=== PATIENT | female | born 1960 | race African-American/Black ===

== ENCOUNTER 2022-10-15 13:16 | Inpatient (IN) | payer BC, SELFPAY ==
[2022-10-15] MEDS ORDERED: Cyclobenzaprine 10 MG TAB ONE (13:37)
[2022-10-15 13:53] LABS: Actual Bicarbonate (HCO3v) 23 mEq/L (22-28); Calcium, Ionized (venous) 1.19 mmol/L (1.16-1.32); Chloride (VBG) 98 mmol/L (98-106); Hemoglobin (Hb) 10.5 g/dL (11.7-16.0); Potassium (VBG) 3.35 mmol/L (3.70-5.30); Sodium 131.9 mmol/L (133-146)
[2022-10-15 13:59] LABS: #Basophils 0.1 thou/uL (0.0-0.2); #Eosinphils 0.2 thou/uL (0.0-0.7); #Lymphocytes 2.9 thou/uL (1.20-3.40); #Monocytes 0.5 thou/uL (0.11-0.59); #Neutrophils 4.8 thou/uL (1.40-6.50); %Basophils 1.1 % (0.0-1.0); %Eosinophils 2.3 % (0.0-10.0); %Lymphocytes 33.6 % (21.0-51.0); %Monocytes 6.4 % (0.0-10.0); %Neutrophils 56.5 % (42.0-75.0); Hemoglobin 9.3 g/dL (12.0-16.0); Mean Corpuscular HGB CONC 30.9 g/dL (32.0-36.0); Mean Corpuscular Hemoglobin 26.4 pg (27.0-31.0); Mean Corpuscular Volume 85.4 fl (78.0-98.0); Mean Platelet Volume 8.9 fL (7.4-10.4); Platelet Count 94 10x3/uL (130-400); RBC Distribution Width 15.6 % (11.5-14.5); Red Blood Cell (RBC) Count 3.54 mill/uL (4.20-5.40); White Blood Cell (WBC) Count 8.6 10x3/uL (4.8-10.8)
[2022-10-15 14:13] LABS: ALT (SGPT) 15 U/L (8-55); AST (SGOT) 23 U/L (5-34); Albumin 3.4 g/dL (3.4-4.8); Alkaline Phosphatase 407 U/L (40-110); Anion Gap 14 mmol/L (10-20); BUN (Urea Nitrogen) 29 mg/dL (9.8-20.1); Bilirubin, Total 2.2 mg/dL (0.2-1.2); Calc. Creatinine Clearance 0 mL/min (70-130); Calcium 9.5 mg/dL (7.8-10.44); Carbon Dioxide 22 mmol/L (23-31); Chloride 96 mmol/L (98-107); Estimated GFR 21; Globulin 5.1 g/dL (2.4-3.5); Glucose 391 mg/dL (80-115); Magnesium 1.4 mg/dL (1.6-2.6); Potassium 3.2 mmol/L (3.5-5.1); Protein, Total 8.5 g/dL (5.8-8.1); Sodium 129 mmol/L (136-145)
[2022-10-15 14:19] LABS: Phosphorus 2.9 mg/dL (2.3-4.7)
[2022-10-15] MEDS ORDERED: Potassium Chloride 20 MEQ TAB ONE (15:06)
[2022-10-15] MEDS ORDERED: Magnesium 2 GM/50 ML BAG (IN WATER) ONE (15:06)
[2022-10-15 15:30] LABS: Bacteria/HPF 3+ HPF (None Seen); Bilirubin Negative (Negative); Blood, Urine Negative (Negative); Clarity Clear (Clear); Glucose, Urine (Dipstick) Greater than 1000 mg/dL (Negative); Ketone, Urine Negative (Negative); Leukocyte 75 Leu/uL (Negative); Nitrite Negative (Negative); Protein, Urine (Dipstick) Negative (Neg-Trace); RBC/HPF 0-3 HPF (0-3); Specific Gravity, Urine 1.007 (1.002-1.036); Squamous Epithelial 0-3 HPF (0-3); Urobilinogen Normal mg/dL (Less than 2); WBC/HPF 0-3 HPF (0-3)
[2022-10-15] MEDS ORDERED: Dextrose 50% Abboject 50 ML SYRINGE SLOW IVP PRN (15:32)
[2022-10-15] MEDS ORDERED: Dextrose 5% in Water 1,000 ML IV PRN (15:32)
[2022-10-15] MEDS ORDERED: hydrALAZINE 20 MG/ML VIAL SLOW IVP PRN (15:33)
[2022-10-15] MEDS ORDERED: hydrOXYzine 10 MG TAB PO PRN (16:18)
[2022-10-15] MEDS ORDERED: Baclofen 10 MG TAB PO PRN (16:18)
[2022-10-15] MEDS ORDERED: Diclofenac 1% 100 GM GEL TP PRN (16:18)
[2022-10-15] MEDS: Lactated Ringer's 1,000 ML IV SCH (16:36)
[2022-10-15] MEDS: HumaLOG 300 UNITS/3 ML VIAL SC PRN ×2 (16:40→20:04)
[2022-10-15 16:43] LABS: Hemoglobin A1c 10.3 % (4.0-6.0)
[2022-10-15 16:48] LABS: Cardiac Risk 5.5 (Less than 4.5)
[2022-10-15 17:13] VITALS: BMI 28.5
[2022-10-15] MEDS: metFORMIN 500 MG TAB PO SCH (17:42)
[2022-10-15] MEDS: Thiamine 100 MG TAB PO SCH (20:01)
[2022-10-15] MEDS: Heparin 5,000 UNITS/ML VIAL SC SCH (20:01)
[2022-10-15] MEDS: NIFEdipine XL 30 MG TAB PO SCH (20:01)
[2022-10-15] MEDS: Artificial Tear Sol 15 ML BOT EA EYE SCH (20:03)
[2022-10-15] MEDS ORDERED: Insulin Glargine 30 UNITS/0.3 ML VIAL SC SCH (21:00)
[2022-10-16] MEDS: Lactated Ringer's 1,000 ML IV SCH (00:28)
[2022-10-16] MEDS: HumaLOG 300 UNITS/3 ML VIAL SC PRN ×4 (06:12→20:36)
[2022-10-16 07:20] LABS: Anion Gap 13 mmol/L (10-20); BUN (Urea Nitrogen) 26 mg/dL (9.8-20.1); Calc. Creatinine Clearance 36 mL/min (70-130); Carbon Dioxide 20 mmol/L (23-31); Chloride 104 mmol/L (98-107); Estimated GFR 27; Glucose 323 mg/dL (80-115); Sodium 133 mmol/L (136-145)
[2022-10-16] MEDS ORDERED: Insulin Glargine 30 UNITS/0.3 ML VIAL SC SCH ×4 (07:45→17:45)
[2022-10-16] MEDS: Propranolol 10 MG TAB PO SCH (08:44)
[2022-10-16] MEDS: metFORMIN 500 MG TAB PO SCH ×2 (08:44→16:38)
[2022-10-16] MEDS: Furosemide 40 MG TAB PO SCH (08:44)
[2022-10-16] MEDS: Gabapentin 100 MG CAP PO SCH (08:44)
[2022-10-16] MEDS: Cyanocobalamin (Vitamin B-12) 1,000 MCG TAB PO SCH (08:44)
[2022-10-16] MEDS: Thiamine 100 MG TAB PO SCH ×2 (08:44→20:34)
[2022-10-16] MEDS: Heparin 5,000 UNITS/ML VIAL SC SCH ×3 (08:45→20:34)
[2022-10-16] MEDS: Artificial Tear Sol 15 ML BOT EA EYE SCH ×2 (08:46→20:34)
[2022-10-16] MEDS: NIFEdipine XL 30 MG TAB PO SCH (20:33)
[2022-10-16] MEDS: Atorvastatin Calcium 40 MG TAB PO SCH (20:34)
[2022-10-17] MEDS: HumaLOG 300 UNITS/3 ML VIAL SC PRN ×3 (05:55→17:13)
[2022-10-17 08:15] LABS: Anion Gap 10 mmol/L (10-20); BUN (Urea Nitrogen) 25 mg/dL (9.8-20.1); Calc. Creatinine Clearance 34 mL/min (70-130); Calcium 9.1 mg/dL (7.8-10.44); Carbon Dioxide 23 mmol/L (23-31); Chloride 106 mmol/L (98-107); Estimated GFR 25; Glucose 300 mg/dL (80-115); Potassium 3.9 mmol/L (3.5-5.1); Sodium 135 mmol/L (136-145)
[2022-10-17] MEDS ORDERED: Insulin Glargine 30 UNITS/0.3 ML VIAL SC SCH ×2 (09:00→10:45)
[2022-10-17] MEDS: Gabapentin 100 MG CAP PO SCH (09:30)
[2022-10-17] MEDS: Cyanocobalamin (Vitamin B-12) 1,000 MCG TAB PO SCH (09:30)
[2022-10-17] MEDS: Thiamine 100 MG TAB PO SCH ×2 (09:30→20:24)
[2022-10-17] MEDS: Artificial Tear Sol 15 ML BOT EA EYE SCH ×2 (09:31→19:14)
[2022-10-17] MEDS: Propranolol 10 MG TAB PO SCH (09:31)
[2022-10-17] MEDS: Furosemide 40 MG TAB PO SCH (09:31)
[2022-10-17] MEDS: Heparin 5,000 UNITS/ML VIAL SC SCH ×3 (09:31→20:25)
[2022-10-17] MEDS: metFORMIN 500 MG TAB PO SCH ×2 (09:31→17:13)
[2022-10-17 11:04] LABS: Bacteria/HPF 3+ HPF (None Seen); Bilirubin Negative (Negative); Blood, Urine Negative (Negative); CAUTI Indications for Culture Dysuria,urgency,freq; Clarity Clear (Clear); Glucose, Urine (Dipstick) 150 mg/dL (Negative); Ketone, Urine Negative (Negative); Leukocyte 250 Leu/uL (Negative); Nitrite Negative (Negative); Protein, Urine (Dipstick) Negative (Neg-Trace); RBC/HPF 0-3 HPF (0-3); Specific Gravity, Urine 1.013 (1.002-1.036); Urobilinogen Normal mg/dL (Less than 2)
[2022-10-17 11:05] LABS: Urine Culture Reflex No No
[2022-10-17] MEDS: Cephalexin 250 MG CAP PO SCH ×3 (12:08→23:22)
[2022-10-17] MEDS: Atorvastatin Calcium 40 MG TAB PO SCH (20:24)
[2022-10-17] MEDS: NIFEdipine XL 30 MG TAB PO SCH (20:25)
[2022-10-18] MEDS: Cephalexin 250 MG CAP PO SCH ×2 (05:24→11:14)
[2022-10-18 07:42] LABS: Anion Gap 9 mmol/L (10-20); BUN (Urea Nitrogen) 25 mg/dL (9.8-20.1); Calc. Creatinine Clearance 37 mL/min (70-130); Calcium 9.3 mg/dL (7.8-10.44); Carbon Dioxide 26 mmol/L (23-31); Chloride 104 mmol/L (98-107); Estimated GFR 28; Glucose 216 mg/dL (80-115); Potassium 4.1 mmol/L (3.5-5.1); Sodium 135 mmol/L (136-145)
[2022-10-18 07:52] LABS: #Basophils 0.1 thou/uL (0.0-0.2); #Eosinphils 0.2 thou/uL (0.0-0.7); #Lymphocytes 3.6 thou/uL (1.20-3.40); #Monocytes 0.7 thou/uL (0.11-0.59); #Neutrophils 3.4 thou/uL (1.40-6.50); %Basophils 0.7 % (0.0-1.0); %Eosinophils 2.3 % (0.0-10.0); %Lymphocytes 45.9 % (21.0-51.0); %Monocytes 8.3 % (0.0-10.0); %Neutrophils 42.7 % (42.0-75.0); Hemoglobin 8.8 g/dL (12.0-16.0); Mean Corpuscular HGB CONC 31.6 g/dL (32.0-36.0); Mean Corpuscular Hemoglobin 27.2 pg (27.0-31.0); Mean Platelet Volume 8.4 fL (7.4-10.4); Platelet Count 84 10x3/uL (130-400); Red Blood Cell (RBC) Count 3.24 mill/uL (4.20-5.40); White Blood Cell (WBC) Count 7.9 10x3/uL (4.8-10.8)
[2022-10-18] MEDS: metFORMIN 500 MG TAB PO SCH (08:56)
[2022-10-18] MEDS: Furosemide 40 MG TAB PO SCH (08:56)
[2022-10-18] MEDS: Cyanocobalamin (Vitamin B-12) 1,000 MCG TAB PO SCH (08:56)
[2022-10-18] MEDS: Thiamine 100 MG TAB PO SCH (08:57)
[2022-10-18] MEDS: Gabapentin 100 MG CAP PO SCH (08:57)
[2022-10-18] MEDS: Artificial Tear Sol 15 ML BOT EA EYE SCH (08:58)
[2022-10-18] MEDS: Heparin 5,000 UNITS/ML VIAL SC SCH ×2 (08:58→14:32)
[2022-10-18] MEDS ORDERED: Insulin Glargine 30 UNITS/0.3 ML VIAL SC SCH (09:00)
[2022-10-18] MEDS: Propranolol 10 MG TAB PO SCH (09:52)
[2022-10-18 11:12] VITALS: BP 115/72; TEMP 98.1
[2022-10-18] MEDS: HumaLOG 300 UNITS/3 ML VIAL SC PRN (11:15)
== END 2022-10-18 16:06 | DRG 638 ==
LOC: ERS 13:16 → T4-A 15:10 → OBSVTOIN 10-18 09:54
PROVIDERS: ADMIT Student in an Organized Health Care Education/Training Program; ATTEND Student in an Organized Health Care Education/Training Program
DX: E11.65 Type 2 diabetes mellitus with hyperglycemia (principal); N17.9 Acute kidney failure, unspecified; N39.0 Urinary tract infection, site not specified; E11.22 Type 2 diabetes mellitus with diabetic chronic kidney disease; I12.9 Hypertensive chronic kidney disease with stage 1 through stage 4 chronic kidney disease, or unspecified chronic kidney disease; E87.6 Hypokalemia; E83.42 Hypomagnesemia; K70.30 Alcoholic cirrhosis of liver without ascites; F17.210 Nicotine dependence, cigarettes, uncomplicated; I16.0 Hypertensive urgency; G89.29 Other chronic pain; K21.9 Gastro-esophageal reflux disease without esophagitis; N18.9 Chronic kidney disease, unspecified; Z79.899 Other long term (current) drug therapy
CPT/HCPCS: 36415; 36416; 71045; 80048; 80053; 80061; 81001; 81003; 81015; 82010; 82805; 83036; 83735; 84100; 84443; 84484; 85025; 87086; 96361; 96365; 96372; G0378; J1644; J1815; J3475; J7120

== ENCOUNTER 2023-06-12 23:58 | Inpatient (IN) | payer BC, SELFPAY ==
[2023-06-13 00:56] LABS: Bilirubin Negative (Negative); Blood, Urine Negative (Negative); CAUTI Indications for Culture Alt mental st,lethar; Clarity Clear (Clear); Glucose, Urine (Dipstick) Normal (Negative); Ketone, Urine Negative (Negative); Leukocyte Negative Leu/uL (Negative); Nitrite Negative (Negative); Protein, Urine (Dipstick) Negative (Neg-Trace); RBC/HPF 0-3 HPF (0-3); Specific Gravity, Urine 1.011 (1.002-1.036); Urobilinogen Normal mg/dL (Less than 2); WBC/HPF 0-3 HPF (0-3)
[2023-06-13 00:58] LABS: Bacteria/HPF Rare-Few HPF (None Seen)
[2023-06-13 00:59] LABS: Urine Culture Reflex No No
[2023-06-13 01:53] LABS: Actual Bicarbonate (HCO3v) 18.5 mEq/L (22-28); Base Excess -4.5 mEq/L (-2.0 to +3.0); Calcium, Ionized (venous) 1.07 mmol/L (1.16-1.32); Chloride (VBG) 113 mmol/L (98-106); Hematocrit-VBG 30 % (36.0-47.0); Hemoglobin (Hb) 10.2 g/dL (11.7-16.0); Potassium (VBG) 4.35 mmol/L (3.70-5.30); Sodium 126.3 mmol/L (133-146); pH (venous) 7.447 (7.32-7.43)
[2023-06-13] MEDS ORDERED: Cefepime 2 GM VIAL ONE (01:57)
[2023-06-13 02:00] LABS: #Basophils 0.1 thou/uL (0.0-0.2); #Eosinphils 0.2 thou/uL (0.0-0.7); #Monocytes 1.1 thou/uL (0.11-0.59); #Neutrophils 11.9 thou/uL (1.40-6.50); %Basophils 0.4 % (0.0-1.0); %Eosinophils 1.2 % (0.0-10.0); %Lymphocytes 14.3 % (21.0-51.0); %Monocytes 7.1 % (0.0-10.0); %Neutrophils 76.3 % (42.0-75.0); Hemoglobin 8.5 g/dL (12.0-16.0); Mean Corpuscular HGB CONC 33.1 g/dL (32.0-36.0); Mean Corpuscular Hemoglobin 26.6 pg (27.0-31.0); Mean Corpuscular Volume 80.6 fl (78.0-98.0); Red Blood Cell (RBC) Count 3.19 mill/uL (4.20-5.40); White Blood Cell (WBC) Count 15.6 10x3/uL (4.8-10.8)
[2023-06-13 02:11] LABS: Platelet Count 85 10x3/uL (130-400)
[2023-06-13 02:26] LABS: ALT (SGPT) 13 U/L (8-55); AST (SGOT) 23 U/L (5-34); Albumin 2.8 g/dL (3.4-4.8); Alkaline Phosphatase 309 U/L (40-110); Anion Gap 11 mmol/L (10-20); BUN (Urea Nitrogen) 33 mg/dL (9.8-20.1); Bilirubin, Total 1.8 mg/dL (0.2-1.2); Calc. Creatinine Clearance 0 mL/min (70-130); Calcium 8.6 mg/dL (7.8-10.44); Carbon Dioxide 20 mmol/L (23-31); Chloride 111 mmol/L (98-107); Estimated GFR 21; Globulin 4.4 g/dL (2.4-3.5); Glucose 144 mg/dL (80-115); Potassium 4.4 mmol/L (3.5-5.1); Protein, Total 7.2 g/dL (5.8-8.1); Sodium 138 mmol/L (136-145)
[2023-06-13] MEDS ORDERED: Ondansetron ODT 4 MG TAB PO PRN (04:28)
[2023-06-13] MEDS ORDERED: Ondansetron PF 4 MG/2 ML Vial IVP PRN (04:28)
[2023-06-13] MEDS ORDERED: Acetaminophen 650 MG Suppository PR PRN (04:28)
[2023-06-13] MEDS ORDERED: Acetaminophen 325 MG TAB PO PRN (04:28)
[2023-06-13 04:37] VITALS: BMI 36.1
[2023-06-13] MEDS ORDERED: Dextrose 50% Abboject 50 ML SYRINGE SLOW IVP PRN (04:55)
[2023-06-13] MEDS ORDERED: Dextrose 5% in Water 1,000 ML IV PRN (04:55)
[2023-06-13] MEDS ORDERED: HumaLOG 300 UNITS/3 ML VIAL SC PRN (04:55)
[2023-06-13] MEDS ORDERED: Glucagon 1 MG/ML KIT IM PRN (04:55)
[2023-06-13 05:50] LABS: SARS-CoV-2 NAA Rapid Test Not Detected (NotDetected)
[2023-06-13 05:57] LABS: Anisocytosis SLIGHT = 6-15 cells HPF (0-5); CellaVision Operator ID lab.abc; Platelet Adequacy Comment Platelets Decreased; Polychromasia SLIGHT = 2-3 cells HPF (0-2); Target Cells SLIGHT = 2-5 cells HPF (0-1)
[2023-06-13 07:25] LABS: Iron 139 ug/dL (50-170); Iron Binding Capacity, Total 129 mcg/dL (265-497)
[2023-06-13] MEDS: Cefepime 2 GM in Sodium Chloride 0.9% 100 ML IVPB SCH (21:21)
[2023-06-14 04:43] LABS: #Basophils 0.1 thou/uL (0.0-0.2); #Eosinphils 0.2 thou/uL (0.0-0.7); #Monocytes 0.9 thou/uL (0.11-0.59); #Neutrophils 4.3 thou/uL (1.40-6.50); %Basophils 0.6 % (0.0-1.0); %Eosinophils 2.6 % (0.0-10.0); %Lymphocytes 31.8 % (21.0-51.0); %Monocytes 10.8 % (0.0-10.0); %Neutrophils 53.7 % (42.0-75.0); Hemoglobin 7.8 g/dL (12.0-16.0); Mean Corpuscular HGB CONC 33.3 g/dL (32.0-36.0); Mean Corpuscular Hemoglobin 26.9 pg (27.0-31.0); Mean Corpuscular Volume 80.7 fl (78.0-98.0); RBC Distribution Width 20.7 % (11.5-14.5)
[2023-06-14 04:56] LABS: Platelet Count 61 10x3/uL (130-400)
[2023-06-14 05:10] LABS: Anion Gap 7 mmol/L (10-20); BUN (Urea Nitrogen) 29 mg/dL (9.8-20.1); Calc. Creatinine Clearance 47 mL/min (70-130); Calcium 8.4 mg/dL (7.8-10.44); Carbon Dioxide 20 mmol/L (23-31); Chloride 114 mmol/L (98-107); Estimated GFR 27; Glucose 112 mg/dL (80-115); Potassium 4.3 mmol/L (3.5-5.1); Sodium 137 mmol/L (136-145)
[2023-06-14] MEDS ORDERED: DAPTOMYCIN IVPB PRN (11:44)
[2023-06-14] MEDS: DAPTOmycin 600 MG in Sodium Chloride 0.9% 50 ML IVPB SCH (16:00)
[2023-06-14] MEDS: Cefepime 2 GM in Sodium Chloride 0.9% 100 ML IVPB SCH (21:13)
[2023-06-14] MEDS: Propranolol 10 MG TAB PO SCH (21:13)
[2023-06-15 04:54] LABS: #Basophils 0.1 thou/uL (0.0-0.2); #Eosinphils 0.4 thou/uL (0.0-0.7); #Monocytes 0.7 thou/uL (0.11-0.59); %Basophils 0.7 % (0.0-1.0); %Eosinophils 4.4 % (0.0-10.0); %Lymphocytes 36.5 % (21.0-51.0); %Monocytes 9.1 % (0.0-10.0); %Neutrophils 48.9 % (42.0-75.0); Mean Corpuscular HGB CONC 32.5 g/dL (32.0-36.0); Mean Corpuscular Hemoglobin 26.4 pg (27.0-31.0); Mean Corpuscular Volume 81.2 fl (78.0-98.0); RBC Distribution Width 21.1 % (11.5-14.5); Red Blood Cell (RBC) Count 3.03 mill/uL (4.20-5.40); White Blood Cell (WBC) Count 8.2 10x3/uL (4.8-10.8)
[2023-06-15 05:03] LABS: Platelet Count 73 10x3/uL (130-400)
[2023-06-15 05:25] LABS: Anion Gap 12 mmol/L (10-20); BUN (Urea Nitrogen) 28 mg/dL (9.8-20.1); Calc. Creatinine Clearance 47 mL/min (70-130); Calcium 8.5 mg/dL (7.8-10.44); Carbon Dioxide 19 mmol/L (23-31); Chloride 111 mmol/L (98-107); Estimated GFR 26; Glucose 148 mg/dL (80-115); Potassium 4.1 mmol/L (3.5-5.1); Sodium 138 mmol/L (136-145)
[2023-06-15] MEDS: Gabapentin 100 MG CAP PO SCH (09:30)
[2023-06-15] MEDS: Propranolol 10 MG TAB PO SCH ×2 (09:31→20:55)
[2023-06-15] MEDS: Thiamine 100 MG TAB PO SCH (09:31)
[2023-06-15] MEDS: Bumetanide 1 MG TAB PO SCH (09:31)
[2023-06-15] MEDS: DAPTOmycin 600 MG in Sodium Chloride 0.9% 50 ML IVPB SCH (18:42)
[2023-06-15] MEDS ORDERED: Cefepime 1 GM in Sodium Chloride 0.9% 100 ML IVPB SCH (21:00)
[2023-06-16] MEDS ORDERED: diphenhydrAMINE 25 MG CAP PO SCH (01:45)
[2023-06-16] MEDS: Gabapentin 100 MG CAP PO SCH (08:30)
[2023-06-16] MEDS: Propranolol 10 MG TAB PO SCH (08:30)
[2023-06-16] MEDS: Thiamine 100 MG TAB PO SCH (08:31)
[2023-06-16 09:23] LABS: Anion Gap 13 mmol/L (10-20); BUN (Urea Nitrogen) 26 mg/dL (9.8-20.1); Calc. Creatinine Clearance 45 mL/min (70-130); Calcium 8.8 mg/dL (7.8-10.44); Carbon Dioxide 16 mmol/L (23-31); Chloride 111 mmol/L (98-107); Estimated GFR 25; Glucose 204 mg/dL (80-115); Potassium 4.5 mmol/L (3.5-5.1); Sodium 135 mmol/L (136-145)
[2023-06-16] MEDS: Bumetanide 1 MG TAB PO SCH (10:53)
[2023-06-16 16:05] VITALS: BP 163/75; TEMP 97.7
== END 2023-06-16 15:55 | disposition home health service (06) | DRG 441 ==
LOC: ERS 23:58 → ERHOLD 06-13 04:06 → 2NO 06-13 15:22 → T4-A 06-15 17:50
PROVIDERS: ADMIT Student in an Organized Health Care Education/Training Program; ATTEND Internal Medicine
DX: K76.82 Hepatic encephalopathy (principal); G93.41 Metabolic encephalopathy; N17.9 Acute kidney failure, unspecified; F32.A Depression, unspecified; K21.9 Gastro-esophageal reflux disease without esophagitis; Z79.84 Long term (current) use of oral hypoglycemic drugs; Z79.899 Other long term (current) drug therapy; J45.909 Unspecified asthma, uncomplicated; Z87.891 Personal history of nicotine dependence; D63.1 Anemia in chronic kidney disease; E11.22 Type 2 diabetes mellitus with diabetic chronic kidney disease; N18.9 Chronic kidney disease, unspecified; D69.59 Other secondary thrombocytopenia; K74.69 Other cirrhosis of liver
CPT/HCPCS: 36415; 36416; 70450; 71045; 74176; 80048; 80053; 81001; 82140; 82728; 82805; 83540; 83550; 83605; 85025; 86850; 86900; 86901; 87040; 87077; 87086; 87149; 87186; 93005; J0692; J0878; J1650; J1815; J3490; U0002

== ENCOUNTER 2023-07-15 09:21 | Emergency (ER) | payer OTHER ==
[2023-07-15] MEDS ORDERED: traMADol HCl 50 MG TAB ONE (12:48)
== END 2023-07-15 15:17 ==
LOC: ERS 09:21
DX: L03.116 Cellulitis of left lower limb (principal); E11.9 Type 2 diabetes mellitus without complications; I10 Essential (primary) hypertension; K21.9 Gastro-esophageal reflux disease without esophagitis; F17.210 Nicotine dependence, cigarettes, uncomplicated; Z79.4 Long term (current) use of insulin

== ENCOUNTER 2023-08-02 01:41 | Inpatient (IN) | payer OTHER ==
[2023-08-02 02:09] VITALS: BMI 30.3
[2023-08-02] MEDS ORDERED: Ondansetron ODT 4 MG TAB PO PRN (02:15)
[2023-08-02] MEDS ORDERED: Acetaminophen 325 MG TAB PO PRN (02:15)
[2023-08-02] MEDS ORDERED: hydrOXYzine 10 MG TAB PO PRN (02:17)
[2023-08-02] MEDS ORDERED: Dextrose 5% in Water 1,000 ML IV PRN (02:28)
[2023-08-02] MEDS ORDERED: Glucagon 1 MG/ML KIT IM PRN (02:28)
[2023-08-02] MEDS ORDERED: Dextrose 50% Abboject 50 ML SYRINGE SLOW IVP PRN (02:28)
[2023-08-02 03:06] LABS: #Basophils 0.1 thou/uL (0.0-0.2); #Eosinphils 0.4 thou/uL (0.0-0.7); #Monocytes 0.8 thou/uL (0.11-0.59); #Neutrophils 5.6 thou/uL (1.40-6.50); %Basophils 0.6 % (0.0-1.0); %Eosinophils 3.5 % (0.0-10.0); %Lymphocytes 32.7 % (21.0-51.0); %Monocytes 8.1 % (0.0-10.0); %Neutrophils 54.9 % (42.0-75.0); Hematocrit 29.9 % (36.0-47.0); Hemoglobin 9.6 g/dL (12.0-16.0); Mean Corpuscular HGB CONC 32.1 g/dL (32.0-36.0); Mean Corpuscular Hemoglobin 26.7 pg (27.0-31.0); Mean Corpuscular Volume 83.1 fl (78.0-98.0); Platelet Count 133 10x3/uL (130-400); RBC Distribution Width 20.1 % (11.5-14.5); White Blood Cell (WBC) Count 10.2 10x3/uL (4.8-10.8)
[2023-08-02] MEDS ORDERED: Ipratropium/Albuterol 3 ML NEB NEB PRN (03:17)
[2023-08-02 03:29] LABS: ALT (SGPT) 14 U/L (8-55); AST (SGOT) 30 U/L (5-34); Albumin 2.7 g/dL (3.4-4.8); Alkaline Phosphatase 226 U/L (40-110); Anion Gap 18 mmol/L (10-20); BUN (Urea Nitrogen) 56 mg/dL (9.8-20.1); Calc. Creatinine Clearance 27 mL/min (70-130); Calcium 9.5 mg/dL (7.8-10.44); Carbon Dioxide 22 mmol/L (23-31); Chloride 106 mmol/L (98-107); Estimated GFR 18; Globulin 5.5 g/dL (2.4-3.5); Glucose 96 mg/dL (80-115); Potassium 3.9 mmol/L (3.5-5.1); Protein, Total 8.2 g/dL (5.8-8.1); Sodium 142 mmol/L (136-145)
[2023-08-02] MEDS: Bumetanide 1 MG TAB PO SCH (09:06)
[2023-08-02] MEDS: Gabapentin 100 MG CAP PO SCH ×3 (09:07→20:17)
[2023-08-02] MEDS: Propranolol 10 MG TAB PO SCH ×2 (09:07→20:17)
[2023-08-02] MEDS: Thiamine 100 MG TAB PO SCH (09:07)
[2023-08-02] MEDS: predniSONE 20 MG TAB PO SCH (09:07)
[2023-08-02] MEDS: Famotidine 20 MG TAB PO SCH (09:07)
[2023-08-02] MEDS ORDERED: Sodium Chloride 0.9% 1,000 ML IV SCH (11:30)
[2023-08-02] MEDS: HumaLOG 300 UNITS/3 ML VIAL SC PRN ×2 (14:24→20:32)
[2023-08-02] MEDS: Albumin 25% 25 GM/100 ML BOT IVPB SCH (18:19)
[2023-08-02] MEDS: Apixaban 5 MG TAB PO SCH (20:16)
[2023-08-02] MEDS: Insulin Glargine 30 UNITS/0.3 ML VIAL SC SCH (20:17)
[2023-08-03] MEDS: Albumin 25% 25 GM/100 ML BOT IVPB SCH ×5 (00:13→23:57)
[2023-08-03] MEDS: HumaLOG 300 UNITS/3 ML VIAL SC PRN ×4 (05:12→20:49)
[2023-08-03 07:43] LABS: Anion Gap 18 mmol/L (10-20); BUN (Urea Nitrogen) 55 mg/dL (9.8-20.1); Calc. Creatinine Clearance 29 mL/min (70-130); Calcium 9.5 mg/dL (7.8-10.44); Carbon Dioxide 22 mmol/L (23-31); Chloride 105 mmol/L (98-107); Estimated GFR 19; Glucose 165 mg/dL (80-115); Potassium 4.2 mmol/L (3.5-5.1); Sodium 141 mmol/L (136-145)
[2023-08-03 09:01] LABS: #Monocytes 0.8 thou/uL (0.11-0.59); #Neutrophils 8.4 thou/uL (1.40-6.50); %Basophils 0.2 % (0.0-1.0); %Eosinophils 0.1 % (0.0-10.0); %Lymphocytes 23.9 % (21.0-51.0); %Monocytes 6.7 % (0.0-10.0); %Neutrophils 68.4 % (42.0-75.0); Hematocrit 23.6 % (36.0-47.0); Hemoglobin 7.8 g/dL (12.0-16.0); Mean Corpuscular HGB CONC 33.1 g/dL (32.0-36.0); Mean Corpuscular Hemoglobin 26.9 pg (27.0-31.0); Mean Corpuscular Volume 81.4 fl (78.0-98.0); RBC Distribution Width 19.8 % (11.5-14.5); White Blood Cell (WBC) Count 12.2 10x3/uL (4.8-10.8)
[2023-08-03 09:07] LABS: Anion Gap 14 mmol/L (10-20); BUN (Urea Nitrogen) 56 mg/dL (9.8-20.1); Calc. Creatinine Clearance 29 mL/min (70-130); Calcium 9.7 mg/dL (7.8-10.44); Carbon Dioxide 26 mmol/L (23-31); Chloride 104 mmol/L (98-107); Estimated GFR 19; Glucose 144 mg/dL (80-115); Potassium 4.2 mmol/L (3.5-5.1); Sodium 140 mmol/L (136-145)
[2023-08-03 09:12] LABS: Platelet Count 79 10x3/uL (130-400)
[2023-08-03] MEDS: Bumetanide 1 MG TAB PO SCH (09:20)
[2023-08-03] MEDS: Apixaban 5 MG TAB PO SCH ×2 (09:21→20:48)
[2023-08-03] MEDS: Propranolol 10 MG TAB PO SCH ×2 (09:21→20:48)
[2023-08-03] MEDS: Famotidine 20 MG TAB PO SCH (09:21)
[2023-08-03] MEDS: Gabapentin 100 MG CAP PO SCH ×3 (09:21→20:47)
[2023-08-03] MEDS: Thiamine 100 MG TAB PO SCH (09:22)
[2023-08-03] MEDS: predniSONE 20 MG TAB PO SCH (09:22)
[2023-08-03] MEDS ORDERED: Sodium Chloride 0.9% 1,000 ML IV SCH (11:30)
[2023-08-03] MEDS: Insulin Glargine 30 UNITS/0.3 ML VIAL SC SCH (20:48)
[2023-08-04] MEDS: Albumin 25% 25 GM/100 ML BOT IVPB SCH ×2 (05:48→12:53)
[2023-08-04 06:41] LABS: #Monocytes 0.7 thou/uL (0.11-0.59); #Neutrophils 8.7 thou/uL (1.40-6.50); %Basophils 0.2 % (0.0-1.0); %Eosinophils 0.2 % (0.0-10.0); %Lymphocytes 19.5 % (21.0-51.0); %Monocytes 6.1 % (0.0-10.0); %Neutrophils 72.8 % (42.0-75.0); Hematocrit 22.2 % (36.0-47.0); Hemoglobin 7.3 g/dL (12.0-16.0); Mean Corpuscular HGB CONC 32.9 g/dL (32.0-36.0); Mean Corpuscular Hemoglobin 26.5 pg (27.0-31.0); Mean Corpuscular Volume 80.7 fl (78.0-98.0); RBC Distribution Width 19.7 % (11.5-14.5); Red Blood Cell (RBC) Count 2.75 mill/uL (4.20-5.40); White Blood Cell (WBC) Count 11.9 10x3/uL (4.8-10.8)
[2023-08-04 07:05] LABS: Anion Gap 20 mmol/L (10-20); BUN (Urea Nitrogen) 53 mg/dL (9.8-20.1); Calc. Creatinine Clearance 30 mL/min (70-130); Carbon Dioxide 21 mmol/L (23-31); Chloride 103 mmol/L (98-107); Estimated GFR 20; Glucose 171 mg/dL (80-115); Potassium 4.6 mmol/L (3.5-5.1); Sodium 139 mmol/L (136-145)
[2023-08-04 07:08] LABS: Platelet Count 71 10x3/uL (130-400)
[2023-08-04] MEDS ORDERED: predniSONE 20 MG TAB PO SCH (08:00)
[2023-08-04] MEDS: Bumetanide 1 MG TAB PO SCH (08:48)
[2023-08-04] MEDS: Propranolol 10 MG TAB PO SCH (08:49)
[2023-08-04] MEDS: Thiamine 100 MG TAB PO SCH (08:49)
[2023-08-04] MEDS: Famotidine 20 MG TAB PO SCH (08:49)
[2023-08-04] MEDS: Gabapentin 100 MG CAP PO SCH ×2 (08:49→15:48)
[2023-08-04] MEDS: hydrALAZINE 25 MG TAB PO SCH ×2 (08:49→15:48)
[2023-08-04] MEDS: Apixaban 5 MG TAB PO SCH (08:49)
[2023-08-04 08:52] VITALS: TEMP 97.9
[2023-08-04] MEDS: HumaLOG 300 UNITS/3 ML VIAL SC PRN (12:58)
[2023-08-04 15:48] VITALS: BP 167/77
== END 2023-08-04 19:04 | DRG 442 ==
LOC: T4-B 01:41 → OBSVTOIN 11:26
PROVIDERS: ADMIT Student in an Organized Health Care Education/Training Program; ATTEND Internal Medicine
DX: K76.82 Hepatic encephalopathy (principal); I82.412 Acute embolism and thrombosis of left femoral vein; J45.901 Unspecified asthma with (acute) exacerbation; N17.9 Acute kidney failure, unspecified; E11.69 Type 2 diabetes mellitus with other specified complication; K70.30 Alcoholic cirrhosis of liver without ascites; I10 Essential (primary) hypertension; Z91.040 Latex allergy status
CPT/HCPCS: 36415; 36416; 70551; 80048; 80053; 82140; 83036; 85025; J1815; J7050; J7512; P9047

== ENCOUNTER 2023-10-17 12:36 | Inpatient (IN) | payer OTHER ==
[2023-10-17] MEDS ORDERED: fentaNYL 50 mcg/mL 1 mL Vial ONE (12:55)
[2023-10-17 13:38] LABS: #Eosinphils 0.2 thou/uL (0.0-0.7); #Monocytes 1.1 thou/uL (0.11-0.59); #Neutrophils 6.5 thou/uL (1.40-6.50); %Basophils 0.3 % (0.0-1.0); %Eosinophils 1.4 % (0.0-10.0); %Lymphocytes 29.9 % (21.0-51.0); %Monocytes 9.5 % (0.0-10.0); %Neutrophils 58.5 % (42.0-75.0); Hematocrit 24.7 % (36.0-47.0); Hemoglobin 8.3 g/dL (12.0-16.0); Mean Corpuscular HGB CONC 33.6 g/dL (32.0-36.0); Mean Corpuscular Hemoglobin 25.8 pg (27.0-31.0); Mean Corpuscular Volume 76.7 fl (78.0-98.0); Platelet Count 98 10x3/uL (130-400); RBC Distribution Width 18.9 % (11.5-14.5); Red Blood Cell (RBC) Count 3.22 mill/uL (4.20-5.40); White Blood Cell (WBC) Count 11.1 10x3/uL (4.8-10.8)
[2023-10-17 14:02] LABS: ALT (SGPT) 16 U/L (8-55); AST (SGOT) 30 U/L (5-34); Alkaline Phosphatase 199 U/L (40-110); Anion Gap 13 mmol/L (10-20); BUN (Urea Nitrogen) 55 mg/dL (9.8-20.1); Bilirubin, Total 1.8 mg/dL (0.2-1.2); Calc. Creatinine Clearance 0 mL/min (70-130); Calcium 8.8 mg/dL (7.8-10.44); Carbon Dioxide 18 mmol/L (23-31); Chloride 106 mmol/L (98-107); Estimated GFR 15; Globulin 4.5 g/dL (2.4-3.5); Glucose 179 mg/dL (80-115); Potassium 4.2 mmol/L (3.5-5.1); Protein, Total 7.5 g/dL (5.8-8.1); Sodium 133 mmol/L (136-145)
[2023-10-17 14:05] LABS: Troponin I 0.013 ng/mL (< 0.028)
[2023-10-17] MEDS ORDERED: Acetaminophen 325 MG TAB PO PRN (16:03)
[2023-10-17] MEDS ORDERED: Dextrose 5% in Water 1,000 ML IV PRN (16:21)
[2023-10-17] MEDS ORDERED: Glucagon 1 MG/ML KIT IM PRN (16:21)
[2023-10-17] MEDS ORDERED: Insulin Regular 300 UNITS/3 ML VIAL SC PRN (16:21)
[2023-10-17] MEDS ORDERED: Dextrose 50% Abboject 50 ML SYRINGE SLOW IVP PRN (16:21)
[2023-10-17] MEDS ORDERED: Epoetin (NON-ESRD) 10,000 UNITS/ML VIAL SC SCH (21:00)
[2023-10-17] MEDS ORDERED: Atorvastatin Calcium 40 MG TAB PO SCH (21:00)
[2023-10-17 21:13] LABS: Troponin I 0.027 ng/mL (< 0.028)
[2023-10-17 21:15] VITALS: BMI 31.6
[2023-10-17] MEDS: Famotidine 20 MG TAB PO SCH (22:04)
[2023-10-17] MEDS: Albumin 25% 25 GM/100 ML BOT IVPB SCH (23:00)
[2023-10-17] MEDS ORDERED: EPOETIN ALFA-EPBX (ESRD) 10,000 UNITS/ML VIAL SC SCH (23:00)
[2023-10-18 04:33] LABS: #Eosinphils 0.2 thou/uL (0.0-0.7); #Neutrophils 4.9 thou/uL (1.40-6.50); %Basophils 0.4 % (0.0-1.0); %Eosinophils 2.1 % (0.0-10.0); %Monocytes 10.5 % (0.0-10.0); %Neutrophils 54.6 % (42.0-75.0); Hemoglobin 7.8 g/dL (12.0-16.0); Mean Corpuscular HGB CONC 33.9 g/dL (32.0-36.0); Mean Corpuscular Hemoglobin 26.3 pg (27.0-31.0); Mean Corpuscular Volume 77.4 fl (78.0-98.0); RBC Distribution Width 19.5 % (11.5-14.5); Red Blood Cell (RBC) Count 2.97 mill/uL (4.20-5.40)
[2023-10-18 04:57] LABS: Anion Gap 14 mmol/L (10-20); BUN (Urea Nitrogen) 57 mg/dL (9.8-20.1); Calc. Creatinine Clearance 24 mL/min (70-130); Calcium 8.7 mg/dL (7.8-10.44); Carbon Dioxide 18 mmol/L (23-31); Chloride 109 mmol/L (98-107); Estimated GFR 15; Glucose 91 mg/dL (80-115); Sodium 137 mmol/L (136-145)
[2023-10-18 05:05] LABS: Platelet Count 86 10x3/uL (130-400)
[2023-10-18] MEDS: Albumin 25% 25 GM/100 ML BOT IVPB SCH ×4 (05:26→23:51)
[2023-10-18] MEDS: Ferrous Sulfate 325 MG TAB PO SCH (09:19)
[2023-10-18] MEDS: Aspirin Chewable 81 MG TAB PO SCH (09:19)
[2023-10-18] MEDS: Famotidine 20 MG TAB PO SCH (20:39)
[2023-10-19 05:22] LABS: #Eosinphils 0.2 thou/uL (0.0-0.7); #Neutrophils 4.7 thou/uL (1.40-6.50); %Basophils 0.4 % (0.0-1.0); %Eosinophils 2.4 % (0.0-10.0); %Lymphocytes 34.7 % (21.0-51.0); %Neutrophils 50.7 % (42.0-75.0); Hemoglobin 7.2 g/dL (12.0-16.0); Mean Corpuscular HGB CONC 34.3 g/dL (32.0-36.0); Mean Corpuscular Hemoglobin 25.9 pg (27.0-31.0); Mean Corpuscular Volume 75.5 fl (78.0-98.0); RBC Distribution Width 18.9 % (11.5-14.5); Red Blood Cell (RBC) Count 2.78 mill/uL (4.20-5.40); White Blood Cell (WBC) Count 9.3 10x3/uL (4.8-10.8)
[2023-10-19] MEDS: Albumin 25% 25 GM/100 ML BOT IVPB SCH (05:25)
[2023-10-19 05:54] LABS: ALT (SGPT) 11 U/L (8-55); AST (SGOT) 21 U/L (5-34); Albumin 3.4 g/dL (3.4-4.8); Alkaline Phosphatase 147 U/L (40-110); Anion Gap 13 mmol/L (10-20); BUN (Urea Nitrogen) 51 mg/dL (9.8-20.1); Bilirubin, Total 1.7 mg/dL (0.2-1.2); Calc. Creatinine Clearance 27 mL/min (70-130); Calcium 8.6 mg/dL (7.8-10.44); Carbon Dioxide 20 mmol/L (23-31); Chloride 111 mmol/L (98-107); Estimated GFR 17; Globulin 3.5 g/dL (2.4-3.5); Glucose 139 mg/dL (80-115); Protein, Total 6.9 g/dL (5.8-8.1); Sodium 140 mmol/L (136-145)
[2023-10-19 07:00] LABS: Platelet Count 84 10x3/uL (130-400)
[2023-10-19] MEDS: Ferrous Sulfate 325 MG TAB PO SCH (08:35)
[2023-10-19] MEDS: Aspirin Chewable 81 MG TAB PO SCH (08:35)
[2023-10-19 11:55] VITALS: TEMP 98
[2023-10-19] MEDS ORDERED: Albumin 25% 25 GM/100 ML BOT IVPB SCH (12:00)
[2023-10-19 13:16] VITALS: BP 164/71
== END 2023-10-19 14:32 | disposition home or self-care (01) | DRG 313 ==
LOC: ERS 12:36 → ERHOLD 16:08 → 2SW 20:09 → OBSVTOIN 10-18 14:39
PROVIDERS: ADMIT Internal Medicine; ATTEND Hospitalist
DX: R07.89 Other chest pain (principal); N17.9 Acute kidney failure, unspecified; I13.0 Hypertensive heart and chronic kidney disease with heart failure and stage 1 through stage 4 chronic kidney disease, or unspecified chronic kidney disease; N18.4 Chronic kidney disease, stage 4 (severe); K21.9 Gastro-esophageal reflux disease without esophagitis; K70.30 Alcoholic cirrhosis of liver without ascites; F17.210 Nicotine dependence, cigarettes, uncomplicated; E11.22 Type 2 diabetes mellitus with diabetic chronic kidney disease; D63.1 Anemia in chronic kidney disease; M79.10 Myalgia, unspecified site; I50.9 Heart failure, unspecified; Z86.718 Personal history of other venous thrombosis and embolism; E66.9 Obesity, unspecified; Z79.899 Other long term (current) drug therapy
CPT/HCPCS: 36415; 36416; 71045; 78451; 80048; 80053; 83880; 84484; 85025; 93005; 93306; 93970; 94760; A9540; J1650; J3010; P9047; Q5105

== ENCOUNTER 2023-11-23 15:34 | Observation (INO) | payer OTHER ==
[2023-11-23 17:24] VITALS: BMI 33.6
[2023-11-23] MEDS ORDERED: Acetaminophen 325 MG TAB PO PRN (18:18)
[2023-11-23] MEDS ORDERED: Ondansetron PF 4 MG/2 ML Vial IVP PRN (18:18)
[2023-11-23] MEDS ORDERED: Glucagon 1 MG/ML KIT IM PRN (18:24)
[2023-11-23] MEDS ORDERED: HumaLOG 300 UNITS/3 ML VIAL SC PRN ×2 (18:24)
[2023-11-23] MEDS ORDERED: Dextrose 50% Abboject 50 ML SYRINGE SLOW IVP PRN (18:24)
[2023-11-23] MEDS ORDERED: Dextrose 5% in Water 1,000 ML IV PRN (18:24)
[2023-11-23] MEDS: Artificial Tear Sol 15 ML BOT EA EYE SCH (20:18)
[2023-11-23] MEDS: hydrALAZINE 25 MG TAB PO SCH (20:19)
[2023-11-23] MEDS: Gabapentin 100 MG CAP PO SCH (20:19)
[2023-11-23] MEDS: Lactulose 20 GM (30 mL) UDCUP PO SCH (20:20)
[2023-11-23] MEDS: Propranolol 10 MG TAB PO SCH (20:20)
[2023-11-23] MEDS: Heparin 5,000 UNITS/ML VIAL SC SCH (20:23)
[2023-11-23] MEDS ORDERED: Insulin Glargine 30 UNITS/0.3 ML VIAL SC SCH (21:00)
[2023-11-24 04:20] VITALS: TEMP 98.2
[2023-11-24 05:17] LABS: ALT (SGPT) 11 U/L (8-55); AST (SGOT) 26 U/L (5-34); Albumin 2.9 g/dL (3.4-4.8); Alkaline Phosphatase 247 U/L (40-110); Anion Gap 12 mmol/L (10-20); BUN (Urea Nitrogen) 45 mg/dL (9.8-20.1); Bilirubin, Total 2.2 mg/dL (0.2-1.2); Calc. Creatinine Clearance 28 mL/min (70-130); Calcium 8.6 mg/dL (7.8-10.44); Carbon Dioxide 20 mmol/L (23-31); Chloride 107 mmol/L (98-107); Estimated GFR 17; Globulin 4.5 g/dL (2.4-3.5); Glucose 209 mg/dL (80-115); Magnesium 1.8 mg/dL (1.6-2.6); Protein, Total 7.4 g/dL (5.8-8.1); Sodium 135 mmol/L (136-145)
[2023-11-24] MEDS: hydrALAZINE 25 MG TAB PO SCH ×2 (08:48→15:36)
[2023-11-24] MEDS: Lactulose 20 GM (30 mL) UDCUP PO SCH (08:48)
[2023-11-24] MEDS: Gabapentin 100 MG CAP PO SCH ×2 (08:48→15:36)
[2023-11-24] MEDS: Heparin 5,000 UNITS/ML VIAL SC SCH (08:49)
[2023-11-24] MEDS: Artificial Tear Sol 15 ML BOT EA EYE SCH (08:49)
[2023-11-24] MEDS: Propranolol 10 MG TAB PO SCH (08:49)
[2023-11-24] MEDS ORDERED: Terbinafine 1% Cream 15 GM Tube TOP SCH (09:00)
[2023-11-24] MEDS ORDERED: Cyanocobalamin (Vitamin B-12) 1,000 MCG TAB PO SCH (09:00)
[2023-11-24] MEDS ORDERED: Bumetanide 1 MG TAB PO SCH (09:00)
[2023-11-24] MEDS ORDERED: Thiamine 100 MG TAB PO SCH (09:00)
[2023-11-24 15:38] VITALS: BP 146/77
== END 2023-11-24 15:52 ==
LOC: T4-A 15:34 → INTOOBSV 15:34
PROVIDERS: ADMIT Family Medicine; ATTEND Hospitalist
DX: R41.82 Altered mental status, unspecified (principal); E11.9 Type 2 diabetes mellitus without complications; K21.9 Gastro-esophageal reflux disease without esophagitis; I12.9 Hypertensive chronic kidney disease with stage 1 through stage 4 chronic kidney disease, or unspecified chronic kidney disease; N18.30 Chronic kidney disease, stage 3 unspecified; E78.5 Hyperlipidemia, unspecified; K70.30 Alcoholic cirrhosis of liver without ascites; K72.10 Chronic hepatic failure without coma; F32.A Depression, unspecified; Z91.040 Latex allergy status; Z79.4 Long term (current) use of insulin; Z79.899 Other long term (current) drug therapy; Z87.891 Personal history of nicotine dependence
CPT/HCPCS: 36415; 36416; 80053; 82140; 83735; G0378; J1815

== ENCOUNTER 2023-11-29 12:41 | Inpatient (IN) | payer MEDICARE, OTHER, SELFPAY ==
[2023-11-29 15:39] LABS: ALT (SGPT) 18 U/L (8-55); AST (SGOT) 45 U/L (5-34); Albumin 2.9 g/dL (3.4-4.8); Alkaline Phosphatase 294 U/L (40-110); Anion Gap 19 mmol/L (10-20); BUN (Urea Nitrogen) 47 mg/dL (9.8-20.1); Bilirubin, Total 2.7 mg/dL (0.2-1.2); Calc. Creatinine Clearance 0 mL/min (70-130); Calcium 9.8 mg/dL (7.8-10.44); Carbon Dioxide 14 mmol/L (23-31); Chloride 110 mmol/L (98-107); Estimated GFR 18; Globulin 5.3 g/dL (2.4-3.5); Glucose 93 mg/dL (80-115); Lipase 90 U/L (8-78); Magnesium 1.6 mg/dL (1.6-2.6); Potassium 5.1 mmol/L (3.5-5.1); Protein, Total 8.2 g/dL (5.8-8.1); Sodium 138 mmol/L (136-145)
[2023-11-29 16:07] LABS: #Basophils 0.1 thou/uL (0.0-0.2); #Eosinphils 0.2 thou/uL (0.0-0.7); #Monocytes 0.9 thou/uL (0.11-0.59); #Neutrophils 4.3 thou/uL (1.40-6.50); %Basophils 0.6 % (0.0-1.0); %Eosinophils 2.7 % (0.0-10.0); %Lymphocytes 32.1 % (21.0-51.0); %Monocytes 11.2 % (0.0-10.0); %Neutrophils 52.9 % (42.0-75.0); Hematocrit 26.1 % (36.0-47.0); Hemoglobin 8.7 g/dL (12.0-16.0); Mean Corpuscular HGB CONC 33.3 g/dL (32.0-36.0); Mean Corpuscular Hemoglobin 26.4 pg (27.0-31.0); Mean Corpuscular Volume 79.3 fl (78.0-98.0); RBC Distribution Width 20.9 % (11.5-14.5); Red Blood Cell (RBC) Count 3.29 mill/uL (4.20-5.40); White Blood Cell (WBC) Count 8.1 10x3/uL (4.8-10.8)
[2023-11-29 16:12] LABS: Platelet Count 75 10x3/uL (130-400)
[2023-11-29 16:21] LABS: INR-International Normal Ratio 1.4; PTT 36.6 sec (22.9-36.1); Prothrombin Time 17.6 sec (12.0-14.7)
[2023-11-29 16:25] LABS: Troponin I 0.012 ng/mL (< 0.028)
[2023-11-29 17:09] LABS: Bilirubin Negative (Negative); Blood, Urine Negative (Negative); CAUTI Indications for Culture Alt mental st,lethar; Clarity Clear (Clear); Glucose, Urine (Dipstick) Normal (Negative); Ketone, Urine Negative (Negative); Leukocyte Negative Leu/uL (Negative); Nitrite Negative (Negative); Protein, Urine (Dipstick) Negative (Neg-Trace); RBC/HPF 0-3 HPF (0-3); Specific Gravity, Urine 1.008 (1.002-1.036); Squamous Epithelial 0-3 HPF (0-3); Urobilinogen Normal mg/dL (Less than 2); WBC/HPF 0-3 HPF (0-3)
[2023-11-29 17:13] LABS: Bacteria/HPF 1+ HPF (None Seen); Urine Culture Reflex No No
[2023-11-29] MEDS ORDERED: Lactulose 20 GM (30 mL) UDCUP ONE (18:41)
[2023-11-29 18:53] LABS: Troponin I 0.039 ng/mL (< 0.028)
[2023-11-29] MEDS: Propranolol 10 MG TAB PO SCH (21:43)
[2023-11-29] MEDS: Lactulose 20 GM (30 mL) UDCUP PO SCH (21:43)
[2023-11-29] MEDS: hydrALAZINE 25 MG TAB PO SCH (21:43)
[2023-11-29] MEDS: Artificial Tear Sol 15 ML BOT EA EYE SCH (21:49)
[2023-11-29] MEDS: Insulin Glargine 30 UNITS/0.3 ML VIAL SC SCH (21:50)
[2023-11-29] MEDS ORDERED: Dextrose 5% in Water 1,000 ML IV PRN (22:11)
[2023-11-29] MEDS ORDERED: Glucagon 1 MG/ML KIT IM PRN (22:11)
[2023-11-29] MEDS ORDERED: Dextrose 50% Abboject 50 ML SYRINGE SLOW IVP PRN (22:11)
[2023-11-29] MEDS ORDERED: Insulin Regular 300 UNITS/3 ML VIAL SC PRN (22:11)
[2023-11-29 22:36] LABS: Troponin I 0.034 ng/mL (< 0.028)
[2023-11-30 01:20] VITALS: BMI 31.6
[2023-11-30 04:31] LABS: #Basophils 0.1 thou/uL (0.0-0.2); #Eosinphils 0.2 thou/uL (0.0-0.7); #Monocytes 0.9 thou/uL (0.11-0.59); #Neutrophils 4.2 thou/uL (1.40-6.50); %Basophils 0.6 % (0.0-1.0); %Eosinophils 2.3 % (0.0-10.0); %Lymphocytes 34.7 % (21.0-51.0); %Monocytes 11.4 % (0.0-10.0); %Neutrophils 50.6 % (42.0-75.0); Hematocrit 23.5 % (36.0-47.0); Hemoglobin 7.9 g/dL (12.0-16.0); Mean Corpuscular HGB CONC 33.6 g/dL (32.0-36.0); Mean Corpuscular Hemoglobin 26.2 pg (27.0-31.0); Mean Corpuscular Volume 78.1 fl (78.0-98.0); RBC Distribution Width 20.6 % (11.5-14.5); Red Blood Cell (RBC) Count 3.01 mill/uL (4.20-5.40); White Blood Cell (WBC) Count 8.2 10x3/uL (4.8-10.8)
[2023-11-30 04:38] LABS: Platelet Count 71 10x3/uL (130-400)
[2023-11-30 04:48] LABS: ALT (SGPT) 13 U/L (8-55); AST (SGOT) 31 U/L (5-34); Albumin 2.7 g/dL (3.4-4.8); Alkaline Phosphatase 224 U/L (40-110); Anion Gap 17 mmol/L (10-20); BUN (Urea Nitrogen) 49 mg/dL (9.8-20.1); Calc. Creatinine Clearance 27 mL/min (70-130); Calcium 8.7 mg/dL (7.8-10.44); Carbon Dioxide 18 mmol/L (23-31); Chloride 110 mmol/L (98-107); Estimated GFR 18; Globulin 4.6 g/dL (2.4-3.5); Glucose 104 mg/dL (80-115); Potassium 4.1 mmol/L (3.5-5.1); Protein, Total 7.3 g/dL (5.8-8.1); Sodium 141 mmol/L (136-145)
[2023-11-30 07:52] LABS: Magnesium 1.4 mg/dL (1.6-2.6)
[2023-11-30] MEDS: Lactulose 20 GM (30 mL) UDCUP PO SCH ×3 (08:07→20:03)
[2023-11-30] MEDS: Bumetanide 1 MG TAB PO SCH (08:07)
[2023-11-30] MEDS: Thiamine 100 MG TAB PO SCH (08:08)
[2023-11-30] MEDS: hydrALAZINE 25 MG TAB PO SCH ×3 (08:08→20:26)
[2023-11-30] MEDS: Propranolol 10 MG TAB PO SCH ×2 (08:08→20:27)
[2023-11-30] MEDS: Cyanocobalamin (Vitamin B-12) 1,000 MCG TAB PO SCH (08:08)
[2023-11-30] MEDS: Artificial Tear Sol 15 ML BOT EA EYE SCH ×2 (08:09→20:02)
[2023-11-30] MEDS ORDERED: Electrolyte Replacement Protocol 1 EACH FS SCH (08:15)
[2023-11-30] MEDS ORDERED: Magnesium Sulfate In Water 4 GM in Premix 1 BAG IVPB SCH (08:30)
[2023-11-30] MEDS: Insulin Regular 300 UNITS/3 ML VIAL SC PRN (17:35)
[2023-11-30] MEDS: Insulin Glargine 30 UNITS/0.3 ML VIAL SC SCH (20:27)
[2023-12-01 05:08] LABS: Hemoglobin 7.7 g/dL (12.0-16.0); Manual Diff?? YES; Mean Corpuscular HGB CONC 33.5 g/dL (32.0-36.0); Mean Corpuscular Hemoglobin 26.4 pg (27.0-31.0); Mean Corpuscular Volume 78.8 fl (78.0-98.0); RBC Distribution Width 20.3 % (11.5-14.5); Red Blood Cell (RBC) Count 2.92 mill/uL (4.20-5.40); White Blood Cell (WBC) Count 8.3 10x3/uL (4.8-10.8)
[2023-12-01 05:20] LABS: Delete Auto Diff?? YES; Platelet Count 74 10x3/uL (130-400)
[2023-12-01 05:34] LABS: ALT (SGPT) 13 U/L (8-55); AST (SGOT) 25 U/L (5-34); Albumin 2.8 g/dL (3.4-4.8); Alkaline Phosphatase 231 U/L (40-110); Anion Gap 13 mmol/L (10-20); BUN (Urea Nitrogen) 49 mg/dL (9.8-20.1); Bilirubin, Total 1.9 mg/dL (0.2-1.2); Calc. Creatinine Clearance 24 mL/min (70-130); Calcium 8.7 mg/dL (7.8-10.44); Carbon Dioxide 21 mmol/L (23-31); Chloride 106 mmol/L (98-107); Estimated GFR 16; Globulin 4.3 g/dL (2.4-3.5); Glucose 131 mg/dL (80-115); Potassium 3.9 mmol/L (3.5-5.1); Protein, Total 7.1 g/dL (5.8-8.1); Sodium 136 mmol/L (136-145)
[2023-12-01] MEDS: Insulin Regular 300 UNITS/3 ML VIAL SC PRN ×2 (06:07→11:22)
[2023-12-01 06:40] LABS: Anisocytosis MODERATE=16-30 cells HPF (0-5); Band 5 % (5-11); CellaVision Operator ID LAB.JMM; Eosinophils 3 % (0-10); Large Platelets 7.1 % (0-5); Lymphocytes 31 % (21-51); Macrocytosis MARKED = >30 cells HPF (0-5); Metamyelocyte 1 % (0-0); Monocytes 5 % (0-10); Neutrophil 55 % (42-75); Ovalocytes MODERATE= 6-15 cells HPF (0-1); Platelet Adequacy Comment Platelets Decreased; Polychromasia SLIGHT = 2-3 cells HPF (0-2); Smudge Cells 32.3 %; Target Cells MODERATE= 6-15 cells HPF (0-1); Total Cell Count 99
[2023-12-01] MEDS: Artificial Tear Sol 15 ML BOT EA EYE SCH (08:42)
[2023-12-01] MEDS: Lactulose 20 GM (30 mL) UDCUP PO SCH ×2 (08:45→14:06)
[2023-12-01] MEDS: Thiamine 100 MG TAB PO SCH (08:46)
[2023-12-01] MEDS: Bumetanide 1 MG TAB PO SCH (08:46)
[2023-12-01] MEDS: hydrALAZINE 25 MG TAB PO SCH ×2 (08:46→14:09)
[2023-12-01] MEDS: Propranolol 10 MG TAB PO SCH (08:46)
[2023-12-01] MEDS: Cyanocobalamin (Vitamin B-12) 1,000 MCG TAB PO SCH (08:46)
[2023-12-01 11:56] VITALS: TEMP 98.1
[2023-12-01 16:24] VITALS: BP 134/69
[2023-12-03] MEDS ORDERED: FLU VACC QS2023(65UP)/MF59C/PF 60 MCG/0.5 ML SYRINGE IM ONE (01:30)
== END 2023-12-01 16:30 | DRG 443 ==
LOC: ERS 12:41 → INTOOBSV 16:36 → ERHOLD 16:36 → 2NO 21:07 → OBSVTOIN 11-30 14:31
PROVIDERS: ADMIT Internal Medicine; ATTEND Family Medicine
DX: K76.82 Hepatic encephalopathy (principal); K21.9 Gastro-esophageal reflux disease without esophagitis; J45.909 Unspecified asthma, uncomplicated; E83.42 Hypomagnesemia; Z66 Do not resuscitate; I12.9 Hypertensive chronic kidney disease with stage 1 through stage 4 chronic kidney disease, or unspecified chronic kidney disease; N18.30 Chronic kidney disease, stage 3 unspecified; E11.22 Type 2 diabetes mellitus with diabetic chronic kidney disease; K70.30 Alcoholic cirrhosis of liver without ascites; Z91.040 Latex allergy status; Z79.899 Other long term (current) drug therapy; Z79.4 Long term (current) use of insulin
CPT/HCPCS: 36415; 36416; 71045; 74176; 80053; 81001; 82140; 83605; 83690; 83735; 84484; 85025; 85610; 85730; 93005; J1815; J3475

== ENCOUNTER 2024-05-29 19:17 | Inpatient (IN) | payer MEDICARE ==
[2024-05-29] MEDS ORDERED: Ondansetron ODT 4 MG TAB PO PRN (19:52)
[2024-05-29] MEDS ORDERED: Acetaminophen 325 MG TAB PO PRN (19:52)
[2024-05-29] MEDS ORDERED: Acetaminophen 650 MG Suppository PR PRN (19:52)
[2024-05-29] MEDS ORDERED: Ondansetron PF 4 MG/2 ML Vial IVP PRN (19:52)
[2024-05-29] MEDS ORDERED: Methocarbamol 500 MG TAB PO PRN (20:34)
[2024-05-29 20:40] LABS: #Basophils 0.05 10x3/uL (0.0-0.2); %Basophils 0.7 % (0.0-1.0); %Eosinophils 2.3 % (0.0-10.0); %Lymphocytes 35.5 % (21.0-51.0); %Monocytes 8.7 % (0.0-10.0); %Neutrophils 52.4 % (42.0-75.0); Hematocrit 28.9 % (36.0-47.0); Mean Corpuscular HGB CONC 31.1 g/dL (32.0-36.0); Mean Corpuscular Hemoglobin 27.7 pg (27.0-31.0); Mean Corpuscular Volume 88.9 fL (78.0-98.0); Platelet Count 60 10x3/uL (130-400); RBC Distribution Width 19.8 % (11.5-14.5); Red Blood Cell (RBC) Count 3.25 mill/uL (4.20-5.40)
[2024-05-29] MEDS ORDERED: Glucagon 1 MG/ML KIT IM PRN (20:41)
[2024-05-29] MEDS ORDERED: Dextrose 50% Abboject 50 ML SYRINGE SLOW IVP PRN (20:41)
[2024-05-29] MEDS ORDERED: Dextrose 5% in Water 1,000 ML IV PRN (20:41)
[2024-05-29 20:52] LABS: Anion Gap 18 mmol/L (10-20); BUN (Urea Nitrogen) 53 mg/dL (9.8-20.1); Calc. Creatinine Clearance 13 mL/min (70-130); Calcium 7.2 mg/dL (7.8-10.44); Carbon Dioxide 25 mmol/L (23-31); Chloride 100 mmol/L (98-107); Estimated GFR 7; Glucose 262 mg/dL (80-115); Potassium 4.5 mmol/L (3.5-5.1); Sodium 138 mmol/L (136-145)
[2024-05-29] MEDS: Lactulose 20 GM (30 mL) UDCUP PO SCH (21:54)
[2024-05-29] MEDS: Famotidine 20 MG TAB PO SCH (21:54)
[2024-05-29] MEDS: Sodium Bicarbonate Tab 325 MG TAB PO SCH (21:55)
[2024-05-29] MEDS: Insulin Lispro 100 UNIT/ML 10 ML VIAL SC PRN (21:55)
[2024-05-29] MEDS: Gabapentin 100 MG CAP PO SCH (21:55)
[2024-05-29] MEDS: Propranolol 10 MG TAB PO SCH (21:55)
[2024-05-29] MEDS: Rifaximin 550 MG TAB PO SCH (21:55)
[2024-05-29] MEDS: hydrALAZINE 25 MG TAB PO SCH (21:55)
[2024-05-29] MEDS: Insulin Glargine 30 UNITS/0.3 ML VIAL SC SCH (21:55)
[2024-05-29] MEDS: Artificial Tear Ophth Sol 15 ML BOT EA EYE SCH (22:33)
[2024-05-29] MEDS: Famotidine/PF 20 mg/2ml Vial SLOW IVP SCH (22:33)
[2024-05-30 05:09] LABS: #Basophils 0.05 10x3/uL (0.0-0.2); %Basophils 0.7 % (0.0-1.0); %Eosinophils 2.2 % (0.0-10.0); %Lymphocytes 33.4 % (21.0-51.0); %Monocytes 9.9 % (0.0-10.0); %Neutrophils 53.5 % (42.0-75.0); Hematocrit 25.6 % (36.0-47.0); Hemoglobin 8.5 g/dL (12.0-16.0); Mean Corpuscular HGB CONC 33.2 g/dL (32.0-36.0); Mean Corpuscular Hemoglobin 28.1 pg (27.0-31.0); Mean Corpuscular Volume 84.5 fL (78.0-98.0); Platelet Count 57 10x3/uL (130-400); RBC Distribution Width 19.6 % (11.5-14.5); Red Blood Cell (RBC) Count 3.03 mill/uL (4.20-5.40)
[2024-05-30 05:27] LABS: ALT (SGPT) 13 U/L (8-55); AST (SGOT) 26 U/L (5-34); Albumin 1.9 g/dL (3.4-4.8); Alkaline Phosphatase 237 U/L (40-110); Anion Gap 17 mmol/L (10-20); BUN (Urea Nitrogen) 57 mg/dL (9.8-20.1); Bilirubin, Total 2.1 mg/dL (0.2-1.2); Calc. Creatinine Clearance 13 mL/min (70-130); Calcium 6.9 mg/dL (7.8-10.44); Carbon Dioxide 24 mmol/L (23-31); Chloride 104 mmol/L (98-107); Estimated GFR 7; Globulin 4.1 g/dL (2.4-3.5); Glucose 159 mg/dL (80-115); Potassium 4.3 mmol/L (3.5-5.1); Sodium 141 mmol/L (136-145)
[2024-05-30] MEDS: Albumin 25% 25 GM (100 mL) BOT IVPB SCH (06:09)
[2024-05-30] MEDS ORDERED: Epoetin (ESRD) 20,000 UNITS/ML MDV SC SCH (09:45)
[2024-05-30] MEDS: Pantoprazole DR 40 MG TAB PO SCH (10:26)
[2024-05-30] MEDS: Thiamine 100 MG TAB PO SCH (10:27)
[2024-05-30] MEDS: Amlodipine 10 MG TAB PO SCH (10:27)
[2024-05-30] MEDS: Bumetanide 1 MG TAB PO SCH (10:27)
[2024-05-30] MEDS: Cyanocobalamin (Vitamin B-12) 1,000 MCG TAB PO SCH (10:27)
[2024-05-30] MEDS: Calcium Acetate 667 MG CAP PO SCH (12:31)
[2024-05-30] MEDS: EPOETIN ALFA-EPBX (ESRD) 10,000 UNITS/ML VIAL SC SCH (12:50)
[2024-05-30] MEDS: Insulin Lispro 100 UNIT/ML 10 ML VIAL SC PRN (16:24)
[2024-05-31 03:46] LABS: #Basophils Less than 0.03 10x3/uL (0.0-0.2); %Basophils 0.3 % (0.0-1.0); %Eosinophils 2.2 % (0.0-10.0); %Lymphocytes 34.9 % (21.0-51.0); %Monocytes 11.4 % (0.0-10.0); %Neutrophils 50.9 % (42.0-75.0); Hematocrit 26.5 % (36.0-47.0); Hemoglobin 8.5 g/dL (12.0-16.0); Mean Corpuscular HGB CONC 32.1 g/dL (32.0-36.0); Mean Corpuscular Hemoglobin 28.1 pg (27.0-31.0); Mean Corpuscular Volume 87.7 fL (78.0-98.0); Mean Platelet Volume 11.8 fL (7.4-10.4); Platelet Count 66 10x3/uL (130-400); RBC Distribution Width 19.5 % (11.5-14.5); Red Blood Cell (RBC) Count 3.02 mill/uL (4.20-5.40)
[2024-05-31 04:53] LABS: ALT (SGPT) 12 U/L (8-55); AST (SGOT) 26 U/L (5-34); Albumin 2.3 g/dL (3.4-4.8); Alkaline Phosphatase 268 U/L (40-110); Anion Gap 17 mmol/L (10-20); BUN (Urea Nitrogen) 60 mg/dL (9.8-20.1); Bilirubin, Total 2.1 mg/dL (0.2-1.2); Calc. Creatinine Clearance 12 mL/min (70-130); Calcium 7.2 mg/dL (7.8-10.44); Carbon Dioxide 23 mmol/L (23-31); Chloride 105 mmol/L (98-107); Estimated GFR 6; Globulin 4.1 g/dL (2.4-3.5); Glucose 263 mg/dL (80-115); Potassium 4.3 mmol/L (3.5-5.1); Protein, Total 6.4 g/dL (5.8-8.1); Sodium 141 mmol/L (136-145)
[2024-05-31 05:19] LABS: Hep C Index 0.56 S/CO (0-0.79)
[2024-05-31 05:50] LABS: Hep B Core Total Ab REACTIVE (NonReactive)
[2024-05-31 06:28] LABS: HBSAB Concentration 545.14 mIU/mL; Hep B Surf AB REACTIVE (NonReactive)
[2024-05-31 06:31] LABS: HBsAg Index 0.27 S/CO (0-0.99); Hep B Surf Ag NONREACTIVE S/CO (NonReactive); Hep C IgG Ab NONREACTIVE S/CO (NonReactive)
[2024-05-31 07:26] LABS: Hep B Core Total Index 1.14 S/CO (0-0.79)
[2024-05-31 12:32] VITALS: TEMP 98.4
[2024-05-31 16:46] VITALS: BP 121/87
== END 2024-05-31 17:42 | DRG 441 ==
LOC: INTOOBSV 19:17 → 2SE 19:17 → OBSVTOIN 22:58
PROVIDERS: ADMIT Internal Medicine; ATTEND Internal Medicine
DX: K76.82 Hepatic encephalopathy (principal); N18.6 End stage renal disease; I12.0 Hypertensive chronic kidney disease with stage 5 chronic kidney disease or end stage renal disease; B19.10 Unspecified viral hepatitis B without hepatic coma; K70.30 Alcoholic cirrhosis of liver without ascites; K21.9 Gastro-esophageal reflux disease without esophagitis; F17.210 Nicotine dependence, cigarettes, uncomplicated; D63.1 Anemia in chronic kidney disease; D69.59 Other secondary thrombocytopenia; E11.21 Type 2 diabetes mellitus with diabetic nephropathy; E83.51 Hypocalcemia; E88.09 Other disorders of plasma-protein metabolism, not elsewhere classified; Z79.4 Long term (current) use of insulin; Z91.040 Latex allergy status; Z86.718 Personal history of other venous thrombosis and embolism; Z79.899 Other long term (current) drug therapy; Z99.2 Dependence on renal dialysis; E11.22 Type 2 diabetes mellitus with diabetic chronic kidney disease
CPT/HCPCS: 36415; 36416; 80053; 82140; 85025; 86704; 86706; 86803; 87340; J1815; P9047

== ENCOUNTER 2024-08-27 11:44 | Inpatient (IN) | payer MEDICARE, MEDICAID ==
[2024-08-27 12:50] LABS: ALT (SGPT) 13 U/L (8-55); AST (SGOT) 23 U/L (5-34); Albumin 1.9 g/dL (3.4-4.8); Alkaline Phosphatase 242 U/L (40-110); Anion Gap 14 mmol/L (10-20); BUN (Urea Nitrogen) 38 mg/dL (9.8-20.1); Bilirubin, Total 2.6 mg/dL (0.2-1.2); Calc. Creatinine Clearance 0 mL/min (70-130); Calcium 8.6 mg/dL (7.8-10.44); Carbon Dioxide 30 mmol/L (23-31); Chloride 96 mmol/L (98-107); Estimated GFR 6; Globulin 4.5 g/dL (2.4-3.5); Glucose 181 mg/dL (80-115); Potassium 3.6 mmol/L (3.5-5.1); Protein, Total 6.4 g/dL (5.8-8.1); Sodium 136 mmol/L (136-145)
[2024-08-27 12:51] LABS: Acetaminophen Less than 10 mcg/mL (Less than 10); Alcohol Less than 10.0 mg/dL (Less than 10); Magnesium 1.9 mg/dL (1.6-2.6); Salicylate Less than 8.0 mg/dL (Less than 8.0)
[2024-08-27 12:57] LABS: Troponin I 0.029 ng/mL (< 0.028)
[2024-08-27 12:59] LABS: #Basophils 0.04 10x3/uL (0.0-0.2); %Basophils 0.5 % (0.0-1.0); %Eosinophils 1.8 % (0.0-10.0); %Monocytes 7.7 % (0.0-10.0); %Neutrophils 57.6 % (42.0-75.0); Hematocrit 25.7 % (36.0-47.0); Hemoglobin 8.5 g/dL (12.0-16.0); Mean Corpuscular HGB CONC 33.1 g/dL (32.0-36.0); Mean Corpuscular Hemoglobin 27.3 pg (27.0-31.0); Mean Corpuscular Volume 82.6 fL (78.0-98.0); Mean Platelet Volume 10.8 fL (7.4-10.4); Platelet Count 44 10x3/uL (130-400); RBC Distribution Width 19.9 % (11.5-14.5); Red Blood Cell (RBC) Count 3.11 mill/uL (4.20-5.40)
[2024-08-27] MEDS ORDERED: Lactulose 20 GM (30 mL) UDCUP ONE (13:40)
[2024-08-27] MEDS ORDERED: Cefepime 2 GM VIAL ONE (13:40)
[2024-08-27] MEDS ORDERED: Sodium Chloride 0.9% 100 ML ONE (13:41)
[2024-08-27] MEDS ORDERED: Vancomycin (BATCH) 1.75 GM in Premix 1 BAG IVPB SCH (13:45)
[2024-08-27] MEDS ORDERED: Acetaminophen 325 MG TAB PO PRN (14:00)
[2024-08-27] MEDS ORDERED: Senokot S 8.6-50 MG TAB PO PRN (14:00)
[2024-08-27] MEDS ORDERED: Ondansetron PF 4 MG/2 ML Vial IVP PRN (14:00)
[2024-08-27] MEDS ORDERED: Guaifenesin DM 100-10/5 ML UDCUP PO PRN (14:00)
[2024-08-27 14:09] LABS: Amphetamine Not Detected (NotDetected); Barbiturates Screen Not Detected (NotDetected); Benzodiazepine Screen Not Detected (NotDetected); Cocaine Metabolite Screen Not Detected (NotDetected); Methadone Not Detected (NotDetected); Methamphetamine Not Detected (NotDetected); Opiate Screen Detected (NotDetected); Oxycodone Screen Not Detected (NotDetected); Phencyclidine (PCP) Not Detected (NotDetected); THC/Cannabinoid Screen Not Detected (NotDetected); Tricyclic Screen Not Detected (NotDetected)
[2024-08-27 14:18] LABS: Bacteria/HPF 4+ HPF (None Seen); Bilirubin Negative (Negative); Blood, Urine 3+ (Negative); CAUTI Indications for Culture Alt mental st,lethar; Clarity Extra Turbid (Clear); Glucose, Urine (Dipstick) Normal (Negative); Ketone, Urine Trace mg/dL (Negative); Leukocyte 500 Leu/uL (Negative); Nitrite Negative (Negative); Protein, Urine (Dipstick) 100 mg/dL (Neg-Trace); RBC/HPF Greater than 50 HPF (0-3); Specific Gravity, Urine 1.013 (1.002-1.036); Squamous Epithelial None Seen HPF (0-3); WBC/HPF Greater than 50 HPF (0-3); pH, Urine 5.5 (5.0-9.0)
[2024-08-27 14:20] LABS: Urine Culture Reflex Yes Yes
[2024-08-27] MEDS ORDERED: Dextrose 5% in Water 1,000 ML IV PRN (14:25)
[2024-08-27] MEDS ORDERED: Dextrose 50% Abboject 50 ML SYRINGE SLOW IVP PRN (14:25)
[2024-08-27] MEDS ORDERED: Glucagon 1 MG/ML KIT IM PRN (14:25)
[2024-08-27] MEDS ORDERED: hydrALAZINE 25 MG TAB PO SCH (14:30)
[2024-08-27 15:51] LABS: Lactic Acid 3.11 mmol/L (0.5-2.2)
[2024-08-27 16:24] VITALS: BMI 33.3
[2024-08-27] MEDS: hydrALAZINE 25 MG TAB PO SCH (17:02)
[2024-08-27] MEDS: Lactulose 20 GM (30 mL) UDCUP PO SCH (17:02)
[2024-08-27] MEDS: Heparin 5,000 UNITS/ML VIAL SC SCH (17:02)
[2024-08-27] MEDS: Insulin Regular, Human 100 UNIT/ML 10 ML VIAL SC PRN (17:22)
[2024-08-27] MEDS: Famotidine/PF 20 mg/2ml Vial SLOW IVP SCH (21:49)
[2024-08-27] MEDS: Rifaximin 550 MG TAB PO SCH (22:08)
[2024-08-28] MEDS: Cefepime 1 GM in Sodium Chloride 0.9% 100 ML IVPB SCH ×2 (01:36→22:21)
[2024-08-28 05:15] LABS: ALT (SGPT) 13 U/L (8-55); AST (SGOT) 24 U/L (5-34); Albumin 1.8 g/dL (3.4-4.8); Alkaline Phosphatase 196 U/L (40-110); Anion Gap 16 mmol/L (10-20); BUN (Urea Nitrogen) 45 mg/dL (9.8-20.1); Bilirubin, Total 2.9 mg/dL (0.2-1.2); Calc. Creatinine Clearance 10 mL/min (70-130); Carbon Dioxide 25 mmol/L (23-31); Chloride 100 mmol/L (98-107); Estimated GFR 5; Globulin 4.3 g/dL (2.4-3.5); Glucose 169 mg/dL (80-115); Potassium 3.8 mmol/L (3.5-5.1); Protein, Total 6.1 g/dL (5.8-8.1); Sodium 137 mmol/L (136-145)
[2024-08-28 05:19] LABS: #Basophils 0.05 10x3/uL (0.0-0.2); %Basophils 0.7 % (0.0-1.0); %Eosinophils 2.1 % (0.0-10.0); %Lymphocytes 28.5 % (21.0-51.0); %Monocytes 7.1 % (0.0-10.0); %Neutrophils 61.3 % (42.0-75.0); Hematocrit 25.8 % (36.0-47.0); Hemoglobin 8.5 g/dL (12.0-16.0); Mean Corpuscular HGB CONC 32.9 g/dL (32.0-36.0); Mean Corpuscular Hemoglobin 27.7 pg (27.0-31.0); Mean Platelet Volume 12.1 fL (7.4-10.4); Platelet Count 45 10x3/uL (130-400); RBC Distribution Width 20.3 % (11.5-14.5); Red Blood Cell (RBC) Count 3.07 mill/uL (4.20-5.40)
[2024-08-28] MEDS: Amlodipine 10 MG TAB PO SCH (10:26)
[2024-08-28] MEDS: Calcium Acetate 667 MG CAP PO SCH (10:26)
[2024-08-28] MEDS: Cyanocobalamin (Vitamin B-12) 1,000 MCG TAB PO SCH (10:26)
[2024-08-28] MEDS: Gabapentin 100 MG CAP PO SCH (10:26)
[2024-08-28] MEDS: Thiamine 100 MG TAB PO SCH (10:27)
[2024-08-28] MEDS: EPOETIN ALFA-EPBX (ESRD) 10,000 UNITS/ML VIAL SC SCH (10:27)
[2024-08-28] MEDS: Pantoprazole DR 40 MG TAB PO SCH (10:27)
[2024-08-28] MEDS: Albumin 25% 25 GM (100 mL) BOT IVPB SCH (14:59)
[2024-08-28] MEDS: Famotidine/PF 20 mg/2ml Vial SLOW IVP SCH (21:09)
[2024-08-28] MEDS: Insulin Glargine 30 UNITS/0.3 ML VIAL SC SCH (21:11)
[2024-08-29 04:48] LABS: Anion Gap 15 mmol/L (10-20); BUN (Urea Nitrogen) 27 mg/dL (9.8-20.1); Calc. Creatinine Clearance 14 mL/min (70-130); Calcium 8.3 mg/dL (7.8-10.44); Carbon Dioxide 30 mmol/L (23-31); Chloride 97 mmol/L (98-107); Estimated GFR 8; Glucose 155 mg/dL (80-115); Potassium 3.5 mmol/L (3.5-5.1); Sodium 138 mmol/L (136-145)
[2024-08-29 05:06] LABS: #Basophils 0.05 10x3/uL (0.0-0.2); %Basophils 0.7 % (0.0-1.0); %Eosinophils 2.2 % (0.0-10.0); %Lymphocytes 33.9 % (21.0-51.0); %Monocytes 7.7 % (0.0-10.0); %Neutrophils 55.1 % (42.0-75.0); Hemoglobin 8.5 g/dL (12.0-16.0); Mean Corpuscular HGB CONC 31.5 g/dL (32.0-36.0); Mean Corpuscular Hemoglobin 27.8 pg (27.0-31.0); Mean Corpuscular Volume 88.2 fL (78.0-98.0); Mean Platelet Volume 12.1 fL (7.4-10.4); Platelet Count 50 10x3/uL (130-400); Red Blood Cell (RBC) Count 3.06 mill/uL (4.20-5.40)
[2024-08-29] MEDS: Meropenem 1 GM in Sodium Chloride 0.9% 100 ML IVPB SCH (11:44)
[2024-08-29] MEDS: Fosfomycin 3 GM/Packet PO SCH (16:31)
[2024-08-29] MEDS ORDERED: Meropenem 500 MG in Sodium Chloride 0.9% 100 ML IVPB SCH (21:00)
[2024-08-29] MEDS: Melatonin 3 MG TAB PO PRN (23:44)
[2024-08-30 04:48] LABS: Hematocrit 28.4 % (36.0-47.0); Mean Corpuscular HGB CONC 31.7 g/dL (32.0-36.0); Mean Corpuscular Hemoglobin 26.9 pg (27.0-31.0); Mean Corpuscular Volume 84.8 fL (78.0-98.0); Mean Platelet Volume 12.3 fL (7.4-10.4); Platelet Count 52 10x3/uL (130-400); RBC Distribution Width 19.4 % (11.5-14.5); Red Blood Cell (RBC) Count 3.35 mill/uL (4.20-5.40)
[2024-08-30 04:56] LABS: Anion Gap 13 mmol/L (10-20); BUN (Urea Nitrogen) 33 mg/dL (9.8-20.1); Calc. Creatinine Clearance 11 mL/min (70-130); Calcium 8.3 mg/dL (7.8-10.44); Carbon Dioxide 26 mmol/L (23-31); Chloride 101 mmol/L (98-107); Estimated GFR 6; Glucose 139 mg/dL (80-115); Potassium 3.2 mmol/L (3.5-5.1); Sodium 137 mmol/L (136-145)
[2024-08-30 05:21] LABS: Anisocytosis SLIGHT = 6-15 cells HPF (0-5); Band 3 % (5-11); Eosinophils 4 % (0-10); Lymphocytes 13 % (21-51); Metamyelocyte 1 % (0-0); Microcytosis SLIGHT = 6-15 cells HPF (0-5); Monocytes 3 % (0-10); Neutrophil 75 % (42-75); Ovalocytes SLIGHT = 2-5 cells HPF (0-1); Platelet Adequacy Comment Significant Decrease; Polychromasia SLIGHT = 2-3 cells HPF (0-2); Reactive Lymphocytes 1 % (0-10); Target Cells MODERATE= 6-15 cells HPF (0-1); Toxic Granulation SLIGHT; Vacuoles SLIGHT
[2024-08-30] MEDS ORDERED: Activase 2 MG VIAL ONE (13:33)
[2024-08-30] MEDS ORDERED: Heparin 10,000 UNITS/ 10 ML VIAL ONE (13:34)
[2024-08-30] MEDS ORDERED: Sterile Water 10 ML ONE (13:35)
[2024-08-30] MEDS: Metoprolol Tartrate 25 MG TAB PO SCH (20:17)
[2024-08-31 04:24] LABS: Anion Gap 17 mmol/L (10-20); BUN (Urea Nitrogen) 27 mg/dL (9.8-20.1); Calc. Creatinine Clearance 13 mL/min (70-130); Calcium 8.4 mg/dL (7.8-10.44); Carbon Dioxide 24 mmol/L (23-31); Chloride 100 mmol/L (98-107); Estimated GFR 7; Glucose 118 mg/dL (80-115); Potassium 3.8 mmol/L (3.5-5.1); Sodium 137 mmol/L (136-145)
[2024-08-31 04:26] LABS: Hematocrit 27.4 % (36.0-47.0); Mean Corpuscular HGB CONC 32.8 g/dL (32.0-36.0); Mean Corpuscular Hemoglobin 27.8 pg (27.0-31.0); Mean Corpuscular Volume 84.6 fL (78.0-98.0); Platelet Count 53 10x3/uL (130-400); RBC Distribution Width 19.5 % (11.5-14.5); Red Blood Cell (RBC) Count 3.24 mill/uL (4.20-5.40)
[2024-08-31 05:48] LABS: Band 16 % (5-11); Eosinophils 9 % (0-10); Lymphocytes 22 % (21-51); Monocytes 11 % (0-10); Neutrophil 35 % (42-75); Platelet Adequacy Comment Platelets Decreased; Polychromasia SLIGHT = 2-3 cells HPF (0-2); Reactive Lymphocytes 5 % (0-10); Smudge Cells 162.6 %
[2024-08-31 09:18] LABS: Magnesium 1.7 mg/dL (1.6-2.6)
[2024-08-31] MEDS ORDERED: Metoprolol Tartrate 25 MG TAB PO SCH (16:15)
[2024-08-31] MEDS: Metoprolol Tartrate 25 MG TAB PO SCH (20:30)
[2024-08-31] MEDS: Methocarbamol 500 MG TAB PO PRN (20:53)
[2024-09-01 04:44] LABS: Hematocrit 27.6 % (36.0-47.0); Hemoglobin 8.3 g/dL (12.0-16.0); Mean Corpuscular HGB CONC 30.1 g/dL (32.0-36.0); Mean Corpuscular Hemoglobin 27.1 pg (27.0-31.0); Mean Corpuscular Volume 90.2 fL (78.0-98.0); Mean Platelet Volume 12.1 fL (7.4-10.4); Platelet Count 55 10x3/uL (130-400); RBC Distribution Width 19.3 % (11.5-14.5); Red Blood Cell (RBC) Count 3.06 mill/uL (4.20-5.40)
[2024-09-01 04:56] LABS: Anion Gap 16 mmol/L (10-20); BUN (Urea Nitrogen) 33 mg/dL (9.8-20.1); Calc. Creatinine Clearance 10 mL/min (70-130); Calcium 8.2 mg/dL (7.8-10.44); Carbon Dioxide 21 mmol/L (23-31); Chloride 103 mmol/L (98-107); Estimated GFR 5; Glucose 136 mg/dL (80-115); Potassium 4.1 mmol/L (3.5-5.1); Sodium 136 mmol/L (136-145)
[2024-09-01 05:15] LABS: Anisocytosis SLIGHT = 6-15 cells HPF (0-5); Band 4 % (5-11); Eosinophils 10 % (0-10); Lymphocytes 16 % (21-51); Monocytes 6 % (0-10); Neutrophil 63 % (42-75); Platelet Adequacy Comment Platelets Decreased; Polychromasia SLIGHT = 2-3 cells HPF (0-2); Reactive Lymphocytes 1 % (0-10); Target Cells SLIGHT = 2-5 cells HPF (0-1)
[2024-09-01] MEDS: Albumin 25% 25 GM (100 mL) BOT IVPB SCH (10:45)
[2024-09-01] MEDS: Fosfomycin 3 GM/Packet PO SCH (12:04)
[2024-09-01 12:15] VITALS: TEMP 97.5
[2024-09-01 12:51] VITALS: BP 107/55
[2024-09-01] MEDS ORDERED: Metoprolol Tartrate 25 MG TAB PO SCH (21:00)
== END 2024-09-01 14:13 | disposition home or self-care (01) | DRG 441 ==
LOC: ERS 11:44 → 2NO 13:57
PROVIDERS: ADMIT Hospitalist; ATTEND Internal Medicine
PROC: 0T9B70Z Drainage of Bladder with Drainage Device, Via Natural or Artificial Opening (ICD-10-PCS; principal; 2024-08-27)
PROC: 30233J1 Transfusion of Nonautologous Serum Albumin into Peripheral Vein, Percutaneous Approach (ICD-10-PCS; 2024-08-28)
DX: K76.82 Hepatic encephalopathy (principal); G93.41 Metabolic encephalopathy; N18.6 End stage renal disease; N39.0 Urinary tract infection, site not specified; I12.0 Hypertensive chronic kidney disease with stage 5 chronic kidney disease or end stage renal disease; I47.20 Ventricular tachycardia, unspecified; K70.31 Alcoholic cirrhosis of liver with ascites; D63.1 Anemia in chronic kidney disease; K21.9 Gastro-esophageal reflux disease without esophagitis; E11.22 Type 2 diabetes mellitus with diabetic chronic kidney disease; F32.A Depression, unspecified; F17.210 Nicotine dependence, cigarettes, uncomplicated; E87.6 Hypokalemia; I95.9 Hypotension, unspecified; Z91.040 Latex allergy status; Z79.4 Long term (current) use of insulin; Z79.899 Other long term (current) drug therapy; Z99.2 Dependence on renal dialysis; Z79.01 Long term (current) use of anticoagulants
CPT/HCPCS: 36415; 36416; 36901; 36902; 36905; 51701; 70450; 71045; 76705; 76770; 80048; 80053; 80306; 80307; 81001; 82040; 82140; 83605; 83735; 84484; 85025; 87040; 87077; 87086; 87186; 90935; 93005; 96361; 96374; C1725; C1757; C1769; C1894; G0257; J0692; J1644; J1815; J2185; J2997; J3370; J3490; P9047; Q5105

== ENCOUNTER 2024-09-21 18:49 | Emergency (ER) | payer MEDICARE, MEDICAID ==
[2024-09-21] MEDS ORDERED: Orphenadrine Citrate 60 MG/2 ML VIAL ONE (19:45)
[2024-09-21 20:18] LABS: ALT (SGPT) 20 U/L (8-55); AST (SGOT) 43 U/L (5-34); Albumin 2.3 g/dL (3.4-4.8); Alkaline Phosphatase 262 U/L (40-110); Anion Gap 16 mmol/L (10-20); BUN (Urea Nitrogen) 21 mg/dL (9.8-20.1); Calc. Creatinine Clearance 0 mL/min (70-130); Calcium 8.6 mg/dL (7.8-10.44); Carbon Dioxide 22 mmol/L (23-31); Chloride 98 mmol/L (98-107); Estimated GFR 10; Globulin 4.9 g/dL (2.4-3.5); Glucose 195 mg/dL (80-115); Magnesium 1.9 mg/dL (1.6-2.6); Potassium 3.2 mmol/L (3.5-5.1); Protein, Total 7.2 g/dL (5.8-8.1); Sodium 133 mmol/L (136-145)
[2024-09-21 21:11] LABS: #Basophils 0.05 10x3/uL (0.0-0.2); %Basophils 0.8 % (0.0-1.0); %Eosinophils 4.7 % (0.0-10.0); %Lymphocytes 29.6 % (21.0-51.0); %Monocytes 12.7 % (0.0-10.0); %Neutrophils 51.7 % (42.0-75.0); Hematocrit 27.3 % (36.0-47.0); Mean Corpuscular Hemoglobin 30.3 pg (27.0-31.0); Mean Corpuscular Volume 91.9 fL (78.0-98.0); Platelet Count 43 10x3/uL (130-400); Red Blood Cell (RBC) Count 2.97 mill/uL (4.20-5.40)
[2024-09-21] MEDS ORDERED: Potassium Chloride 20 MEQ TAB ONE (23:48)
== END 2024-09-22 06:54 | disposition home or self-care (01) ==
LOC: ERS 18:49
DX: M62.838 Other muscle spasm (principal); E87.6 Hypokalemia; F17.210 Nicotine dependence, cigarettes, uncomplicated; I12.0 Hypertensive chronic kidney disease with stage 5 chronic kidney disease or end stage renal disease; E11.22 Type 2 diabetes mellitus with diabetic chronic kidney disease; N18.6 End stage renal disease; Z99.2 Dependence on renal dialysis; J44.9 Chronic obstructive pulmonary disease, unspecified; Z55.6 Problems related to health literacy
CPT/HCPCS: 80053; 82550; 83735; 85025; 93005; 96372; 99284; J2360; 36416

== ENCOUNTER 2025-05-16 13:12 | Inpatient (IN) | payer OTHER ==
[2025-05-16 13:34] VITALS: BMI 30.2
[2025-05-16] MEDS ORDERED: Bisacodyl 10 MG SUPP PR PRN (13:51)
[2025-05-16] MEDS ORDERED: Scopolamine 1 mg/72 hour Patch TOP PRN (14:00)
[2025-05-16] MEDS ORDERED: Ondansetron PF 4 MG/2 ML Vial IVP PRN (14:00)
[2025-05-16] MEDS: Glycopyrrolate 0.4 MG/ 2 ML VIAL SLOW IVP PRN (14:03)
[2025-05-17] MEDS ORDERED: Pantoprazole 40 MG VIAL IVP SCH (09:00)
== END 2025-05-16 16:50 | disposition expired | DRG 951 ==
LOC: CCU 13:12 → T4-B 16:25 → CCU 17:07
PROVIDERS: ADMIT Family Medicine; ATTEND Family Medicine
DX: Z51.5 Encounter for palliative care (principal); N18.6 End stage renal disease; A41.51 Sepsis due to Escherichia coli [E. coli]; I13.2 Hypertensive heart and chronic kidney disease with heart failure and with stage 5 chronic kidney disease, or end stage renal disease; K74.60 Unspecified cirrhosis of liver; E11.22 Type 2 diabetes mellitus with diabetic chronic kidney disease; D63.1 Anemia in chronic kidney disease; E78.5 Hyperlipidemia, unspecified; Z91.040 Latex allergy status; I50.9 Heart failure, unspecified; Z79.899 Other long term (current) drug therapy
CPT/HCPCS: J3010; J3360